=== PATIENT | female | born 1980 | race Hispanic/Latino ===

== ENCOUNTER 2016-10-10 21:52 | Inpatient (IN) | payer MEDICAID, OTHER ==
[2016-10-10 22:41] LABS: BASO # 0.1 K/uL (0.0-0.2); BASO % 0.8 % (0.0-2.0); EOS # 0.3 K/uL (0.0-0.7); EOS % 3.8 % (0.0-4.0); HEMOGLOBIN 12.9 g/dL (11.0-16.0); LYMPH # 2.7 K/uL (1.0-4.3); LYMPH % 39.6 % (20.0-40.0); MEAN CELL VOLUME 85.6 fL (81.0-99.0); MEAN CORPUSCULAR HEMOGLOBIN 28.7 pg (27.0-31.0); MEAN CORPUSCULAR HGB CONC 33.5 g/dL (33.0-37.0); MONO # 0.5 K/uL (0.0-0.8); MONO % 6.8 % (0.0-10.0); NEUT # 3.3 K/uL (1.8-7.0); RBC 4.5 Mil/uL (3.80-5.20); RED CELL DISTRIBUTION WIDTH 13.6 % (11.5-14.5); WHITE BLOOD COUNT 6.7 K/uL (4.8-10.8)
[2016-10-10 22:49] LABS: ALBUMIN 4.3 g/dL (3.5-5.0); SQUAMOUS EPITHIAL 10 /hpf (0-5); URINE BILIRUBIN NEGATIVE (NEGATIVE); URINE BLOOD NEGATIVE (NEGATIVE); URINE CLARITY Hazy (Clear); URINE COLOR Yellow (YELLOW); URINE GLUCOSE (UA) NORMAL (Normal); URINE LEUKOCYTE ESTERASE NEG Leu/uL (Negative); URINE NITRATE NEGATIVE (NEGATIVE); URINE PROTEIN NEGATIVE (NEGATIVE)
[2016-10-10 22:52] LABS: ALB/GLOB RATIO 1.2 (1.0-2.1); ALT/SGPT 34 U/L (9-52); AST/SGOT 31 U/L (14-36); BLOOD UREA NITROGEN 17 mg/dL (7-17); GFR AFRICAN-AMERICAN > 60; GFR NON-AFRICAN AMERICAN > 60
[2016-10-10 22:53] LABS: CALCIUM 8.9 mg/dl (8.6-10.4)
--- NOTE | 2016-10-10 22:53 | C.PDOC ---
History Of Present Illness 36 yo female, prescrened for detox for heiroin, xanax, last used 1 hr ago. no si /hi, other medical complaitns Time Seen by Provider: 10/10/16 22:10 Chief Complaint (Nursing): Substance Abuse Past Medical History Reviewed: Historical Data, Nursing Documentation, Vital Signs Vital Signs: Last Vital Signs Temp 98.1 F 10/10/16 22:17 Pulse 69 10/10/16 22:17 Resp 17 10/10/16 22:17 BP 118/84 10/10/16 22:17 Pulse Ox 98 10/10/16 22:53 - Medical History PMH: Anxiety Denies: Diabetes, Hepatitis, HIV, HTN, Chronic Kidney Disease, Seizures, Sexually Transmitted Disease - [facility] Procedures DETOXIFICATION SERVICES FOR SUBSTANCE ABUSE TREATMENT (05/02/16) GROUP PSYCHOTHERAPY (05/02/16) Family History: States: Unknown Family Hx - Social History Hx Alcohol Use: No Hx Substance Use: Yes - Immunization History Hx Tetanus Toxoid Vaccination: No Hx Influenza Vaccination: No Hx Pneumococcal Vaccination: No Review Of Systems Except As Marked, All Systems Reviewed And Found Negative. Physical Exam - Physical Exam Appears: Well, No Acute Distress Skin: Normal Color, Warm, Dry Eye(s): bilateral: Normal Inspection, PERRL, EOMI Nose: Normal Throat: Normal Neck: Normal Cardiovascular: Rhythm Regular Respiratory: Normal Breath Sounds Gastrointestinal/Abdominal: Normal Exam Back: Normal Inspection Extremity: Normal ROM ED Course And Treatment - Laboratory Results Result Diagrams: 10/10/16 22:37 10/10/16 22:37 O2 Sat by Pulse Oximetry: 98 Medical Decision Making Medical Decision Making: pt medically cleared. accepted Disposition - Disposition Referrals: Non [facility] Provider, [Primary Care Provider] - Disposition: HOSPITALIZED Disposition Time: 23:36 Condition: STABLE - Clinical Impression Clinical Impression: Opiate dependence Decision To Admit - Pt Status Changed To: Hospital Disposition Of: Inpatient - Admit Certification Admit to Inpatient:: After my assessment, the patient will require hospitalization for at least two midnights. This is because of the severity of symptoms shown, intensity of services needed, and/or the medical risk in this patient being treated as an outpatient. - InPatient: Physician Admission Certification: I certify that this patient requires 2 or more midnights of care for the following reason:: pt needs detox - . Bed Request Type: Detox Admitting Physician: Baltazar Hall Patient Diagnosis: Opiate dependence
[2016-10-10 23:07] LABS: OPIATES, UR POSITIVE (NEGATIVE); PHENCYCLIDINE, UR NEGATIVE (NEGATIVE)
[2016-10-10 23:10] LABS: BARBITURATES, UR NEGATIVE (NEGATIVE)
[2016-10-10 23:15] LABS: BENZODIAZEPINES, UR POSITIVE (NEGATIVE)
[2016-10-11] MEDS ORDERED: Aluminum Hydroxide/Magnesium Hydroxide Susp (30 mL) PO PRN (00:21)
--- NOTE | 2016-10-11 02:11 | PCM.BM ---
<Drake Mathis - Last Filed: 10/11/16 02:08> Treatment Plan Problems - Problems identified on initial assessmt Opiates abuse Date Initiated: 10/11/16 Time Initiated: 00:30 Assessment reference: NA Status: Active ("I use 9-10 bags of heroin IV a day, and smoke 15 - 20 bags of crack a day. Last time I used was yesterday 10/10/16 at 5PM".) Treatment assets and liabiliti Patient Assests: ADL independent, physically healthy, negotiates basic needs, strong james Patient Liabilities: substance abuse (Crack cocaine, Heroin IV. ) - Milieu Protocol Maintain good personal hygiene: daily Encourage regular showers, daily Remind patient to perform daily oral care Maintain personal safety: every shift Educate patient to report safety concerns to staff, every shift Monitor environment for contraband/sharps Medication safety: Monitor for expected outcome, potential side effects: every shift, Assess barriers to learning: every shift, Assess readiness for medication education: every shift <Jailene Calvert - Last Filed: 10/11/16 15:11> Family Contact Family involvement: Family/SO is involved Family contact: Patient agrees to contact Family contact name: Ray/boyfriend Family contacted how many times per week?: 4 - Goals for Treatment Patient goals for treatment: Transition to IOP and Suboxone maintenance as requested. Discharge/Continuing Care - Education Needs Education Needs: Patient Medication, Patient Diagnosis/Disease Process, Patient Coping Skills, Patient Anger Management skills, Patient Community resources - Discharge Discharge Criteria: No longer exhibiting s/s of withdrawal Discharge to:: Home - Treatment Team Participation Patient/Family/SO Statement: 10/11/16 15:12 "I wanna go to Suboxone doctor and IOP near my house." <Sherie Rizo - Last Filed: 10/11/16 15:17> - Diagnosis (1) Opiate dependence Status: Acute Interventions: 10/11/16 15:17 * Assess 7x/week regarding severity of withdrawal * Educate regarding risks, benefits, side effects and alternatives of medications * Use Motivational Interviewing for abstinence * Use CBT for relapse prevention * Medication management for withdrawal symptoms * Encourage medication assisted treatment * (2) Drug dependence Status: Acute Interventions: 10/11/16 15:17 * Assess 7x/week regarding severity of withdrawal * Educate regarding risks, benefits, side effects and alternatives of medications * Use Motivational Interviewing for abstinence * Use CBT for relapse prevention * Medication management for withdrawal symptoms * Encourage medication assisted treatment *
[2016-10-11] MEDS ORDERED: Buprenorphine Hydrochloride 2 mg SL ONE ×2 (13:45→14:38)
[2016-10-11] MEDS ORDERED: Buprenorphine Hydrochloride 2 mg SL SCH (14:52)
--- NOTE | 2016-10-11 15:24 | PCM.PSYCH ---
Initial Psychiatric Evaluation - Initial Psychiatric Evaluation Type of Admission: Voluntary Legal Status: Capacity Chief Complaint (in patient's own words): "I relapsed" History of Present Illness and Precipitating Events: The patient is seen, chart reviewed and case discussed. She is known to the investment underwriter from previous admissions. This is a 36-year-old female, single with 3 children who are with her mother, however she did not disclose this initially. She is unemployed and lives with her boyfriend in [place]. She is using heroin up to 10 bags IV for the last 4 years on and off. She used painkillers one year prior to that. She also uses cocaine by smoking for the last 2 years. She uses Xanax 6 mg a week, again, on and off. She denies alcohol but smokes 1 pack per day cigarettes. She denies all other drugs. Her last use was 5 PM yesterday. She has been to detox 7 times and rehabilitation twice. She reports some anxiety but denies feeling depressed. She wouldn't talk about her trauma history. Past psych history: Anxiety Family psych history: Both sides have substance use. Medical history: Denies Current Medications: Active Medications Generic Name Dose Route Start Last Admin Trade Name Freq PRN Reason Stop Dose Admin Acetaminophen 650 mg 10/11/16 00:21 Tylenol 325mg Tab PO Q4H PRN Fever greater than 101 F Al Hydrox/Mg Hydrox/Simethicone 30 ml 10/11/16 00:21 Maalox 30 Ml PO TID PRN Indigestion / Heartburn Buspirone HCl 10 mg 10/11/16 10:00 10/11/16 09:54 Buspar PO Not Given BID SHIRA Clonidine HCl 0.1 mg 10/11/16 00:21 Catapres PO Q8 PRN COWS Score More or Equal to 5 Gabapentin 600 mg 10/11/16 10:00 10/11/16 14:11 Neurontin PO Not Given TID SHIRA Hydroxyzine HCl 25 mg 10/11/16 00:24 10/11/16 01:12 Atarax PO 25 mg Q6 PRN Administration Anxiety Loperamide HCl 2 mg 10/11/16 00:21 Imodium PO Q8 PRN Diarrhea Lorazepam 1 mg 10/11/16 00:23 Ativan PO Q6 PRN Agitation Nicotine 1 patch 10/11/16 10:00 10/11/16 09:56 Nicoderm Cq TD 1 patch DAILY SHIRA Administration Ondansetron HCl 4 mg 10/11/16 00:21 Zofran Tab PO Q8 PRN Nausea/Vomiting Trazodone HCl 100 mg 10/11/16 08:44 Desyrel PO HS [facility] Past Psychiatric History - Past Psychiatric History Previous Treatment History: None Pertinent Medical Hx (Current Medical&Sleep Prob, Allergies): Allergies Allergy/AdvReac Type Severity Reaction Status Date / Time artificial sweetners Allergy Uncoded 10/10/16 22:17 busPIRone [Buspar] 15 mg PO BID #60 tab 05/05/16 Gabapentin 600 mg PO BID 10/10/16 traZODone [Desyrel] 200 mg PO HS 10/10/16 Review of Systems - Psychiatric Psychiatric: Abnormal Sleep Pattern, Anxiety, Irritability. absent: Hallucinations, Homicidal Ideation, Suicidal Ideation Mental Status Examination - Personal Presentation Personal Presentation: Looks stated age - Affect Affect: Constricted - Motor Activity Motor Activity: Calm - Reliability in Providing Information Reliability in Providing Information: Fair - Speech Speech: Organized - Mood Mood: Anxious - Formal Thought Process Formal Thought Process: No Impairment - Cognitive Functions Orientation: Person, Place, Situation, Time Sensorium: Alert Attention/Concentration: Attentive Estimate of Intelligence: Average Judgement: Intact, as evidence by: Insight regarding need for hospitalization Memory: Recent intact, as evidence by: Ability to recall events of the day, Remote intact, as evidenced by: Abilit to recall sig. life events - Risk Risk: Withdrawal, Diminished functioning - Strength & Assets Inventory Strength & Assets Inventory: Cooperative - Limitations Limitations: Other DSM 5 DX - DSM 5 DSM 5 Diagnosis: opioid withdrawal Opioid use disorder, severe Cocaine use disorder, severe Sedative, hypnotic and anxiolytic use disorder, moderate anxiety disorder, unspecified - Recommended/Plan of Treatment Treatment Recommendations and Plan of Treatment: Subutex detox from opioids Gabapentin for augmentation and anxiety and cocaine wdw As needed meds and vitamins Attend groups and activities [place] for abstinence and CBT for relapse prevention Support and psychoeducation Consider and encourage MAT Refer to after care Buspar for anxiety 33 min Projected ELOS: 4-5 days Prognosis: good w treatment Discharge Plan and Discharge Criteria: No wdw sxs refer to IOP and/or MAT - Smoking Cessation Smoking Cessation Initiated: Yes
[2016-10-12] MEDS: Buprenorphine Hydrochloride 2 mg SL SCH (09:48)
[2016-10-12] MEDS ORDERED: Buprenorphine Hydrochloride 2 mg SL ONE (14:00)
--- NOTE | 2016-10-12 16:08 | PCM.PYCHPN ---
Psychiatric Progress Note - Psychiatric Progress Note Patient seen today, length of contact: 15 min Patient Chief Complaint: "I am very very anxious and withdrawing" Problems Identified/Issues Discussed: Patient is seen, evaluated, and case discussed with staff. Patient states that she does not feel well today. She reports of chills, shaking , sweating, and constipation. Patient denies any side effects from medications. Symptoms are improving slowly and needs more time to stabilize. An extra 2 mg sbx given and will be given more if needed. Atarax is increased Support and psychoeducation given. Medication Change: Yes (detox changes daily) Medical Record Reviewed: Yes Mental Status Examination - Cognitive Function Orientation: Person, Place, Situation, Time Memory: Intact Attention: WNL Concentration: Poor Association: Loose Fund of Knowledge: Poor - Mood Mood: Anxious - Affect Affect: Constricted - Speech Speech: Appropriate - Formal Thought Process Formal Thought Process: No Impairment - Suicidal Ideation Suicidal Ideation: No - Homicidal Ideation Homicidal Ideation: No Goal/Treatment Plan - Goal/Treatment Plan Need for Continued Stay: Discharge may exacerbated symptoms, Severe functional impairment Progress Toward Problem(s) and Goals/Treatment Plan: Subutex detox from opioids Gabapentin for augmentation and anxiety and cocaine wdw As needed meds and vitamins Attend groups and activities [place] for abstinence and CBT for relapse prevention Support and psychoeducation Consider and encourage MAT Refer to after care Epifanio for anxiety Estimated Date of D/C: 10/15/16
[2016-10-13] MEDS: Buprenorphine Hydrochloride 2 mg SL SCH (09:19)
--- NOTE | 2016-10-13 12:28 | PCM.PYCHPN ---
Psychiatric Progress Note - Psychiatric Progress Note Patient seen today, length of contact: 16 min Patient Chief Complaint: "I am better today" Problems Identified/Issues Discussed: The pt is seen, chart reviewed, case discussed with staff. Support given, CBT and CO used briefly No new symptoms reported, improving slowly and needs more time No SEs from medications, risks discussed. After care discussed - she wants to move to [place] and go to a SBX dr there She got an extra sbx yesterday and may need another one today Medication Change: Yes (detox changes daily) Medical Record Reviewed: Yes Mental Status Examination - Cognitive Function Orientation: Person, Place, Situation, Time Memory: Intact Attention: WNL Concentration: WNL Association: WNL Fund of Knowledge: WNL - Mood Mood: Anxious - Affect Affect: Constricted - Speech Speech: Appropriate - Formal Thought Process Formal Thought Process: No Impairment - Suicidal Ideation Suicidal Ideation: No - Homicidal Ideation Homicidal Ideation: No Goal/Treatment Plan - Goal/Treatment Plan Need for Continued Stay: Discharge may exacerbated symptoms, Severe functional impairment Progress Toward Problem(s) and Goals/Treatment Plan: Subutex detox from opioids Gabapentin for augmentation and anxiety and cocaine wdw As needed meds and vitamins Attend groups and activities [place] for abstinence and CBT for relapse prevention Support and psychoeducation Consider and encourage MAT Refer to after care Epifanio for anxiety Estimated Date of D/C: 10/15/16
[2016-10-14] MEDS: Buprenorphine Hydrochloride 2 mg SL SCH (09:49)
[2016-10-14 14:00] VITALS: RESP 18
--- NOTE | 2016-10-14 14:52 | PCM.PYCHPN ---
Psychiatric Progress Note - Psychiatric Progress Note Patient seen today, length of contact: 15 minutes Patient Chief Complaint: I'm feeling much better. Can I go home today. Problems Identified/Issues Discussed: Patient seen. Chart reviewed. Case discussed with the patient. Issues related to illness and treatment were discussed with the patient. Reported compliant with treatment with no adverse affects. Tolerating treatment very well. Reported no withdrawal symptoms. At the time of evaluation, patient was awake alert oriented 3, had no delusions, no auditory or visual hallucinations, no suicidal ideations or homicidal ideations. Medical Problems: None reported Diagnostic Results: Reviewed DSM 5 Symptoms Update: Improving with treatment Medication Change: No (detox changes daily) Medical Record Reviewed: Yes Mental Status Examination - Cognitive Function Orientation: Person, Place, Situation, Time Memory: Intact Attention: WNL Concentration: WNL Association: WN Fund of Knowledge: [facility] Decription of patient's judgement and insights: Fair - Mood Mood: Neutral - Affect Affect: Other (Appropriate) - Speech Speech: Appropriate - Formal Thought Process Formal Thought Process: No Impairment Psychotic Thoughts and Behaviors: None - Suicidal Ideation Suicidal Ideation: No - Homicidal Ideation Homicidal Ideation: No Goal/Treatment Plan - Goal/Treatment Plan Need for Continued Stay: Remain at risks for inpatient hospitalization, Discharge may exacerbated symptoms, Severe functional impairment Progress Toward Problem(s) and Goals/Treatment Plan: Patient education Supportive therapy Continue treatment as before Wants to go to a Suboxone clinic in [place] for follow-up care after discharge from the hospital Estimated Date of D/C: 10/15/16 - Smoking Cessation Smoking Cessation Initiated: Yes
[2016-10-15 06:08] VITALS: BP 97/61; PULSE 63; TEMP 97; O2SAT 99
--- NOTE | 2016-10-15 09:08 | PCM.PYCHDC ---
Mental Status Examination - Mental Status Examination Orientation: Person, Place, Situation, Time Discharge Summary - Discharge Note Consultations:: List each consultation separately and include: 1. Reason for request. 2. Findings. 3. Follow-up Summary of Hospital Course include:: 1. Description of specific treatment plan utilized for patients during their course of treatmen. 2. Summarize the time- course for resolution of acute symptoms and/or regressed behaviors. 3. Describe issues identified and worked on during hospitalization. 4. Describe medication utilized. 5. Describe medical problems identified and treated. 6. Reassessment of suicide risk Summary of Hospital Course: The patient is seen, chart reviewed and case discussed. She is known to the communications writer from previous admissions. This is a 36-year-old female, single with 3 children who are with her mother, however she did not disclose this initially. She is unemployed and lives with her boyfriend in [place]. She is using heroin up to 10 bags IV for the last 4 years on and off. She used painkillers one year prior to that. She also uses cocaine by smoking for the last 2 years. She uses Xanax 6 mg a week, again, on and off. She denies alcohol but smokes 1 pack per day cigarettes. She denies all other drugs. Her last use was 5 PM yesterday. She has been to detox 7 times and rehabilitation twice. She reports some anxiety but denies feeling depressed. She wouldn't talk about her trauma history. Past psych history: Anxiety Family psych history: Both sides have substance use. Medical history: Denies - Diagnosis (1) Opiate dependence Current Visit: Yes Status: Acute (2) Drug dependence Current Visit: No Status: Acute - Final Diagnosis (DSM 5) Condition upon Discharge: STABLE Disposition: HOME/ ROUTINE Follow-up Treatment Plan: Subutex detox from opioids Gabapentin for augmentation and anxiety and cocaine wdw As needed meds and vitamins Attend groups and activities [place] for abstinence and CBT for relapse prevention Support and psychoeducation Consider and encourage MAT Refer to after care Buspar for anxiety Prescriptions/Medication Reconciliation: busPIRone [Buspar] 15 mg PO BID #60 tab Gabapentin [Neurontin] 600 mg PO TID #90 tab traZODone [Desyrel] 100 mg PO HS PRN #30 tab PRN Reason: Insomnia
[2016-10-15] MEDS: Buprenorphine Hydrochloride 2 mg SL SCH (09:18)
== END 2016-10-15 09:25 | disposition home or self-care (01) | DRG 745 ==
LOC: SUPCPDRO 21:52 → C.ER 21:52 → C.7D 23:34
PROVIDERS: ADMIT Psychiatry & Neurology Psychiatry; ATTEND Psychiatry & Neurology Psychiatry
PROC: HZ2ZZZZ Detoxification Services for Substance Abuse Treatment (ICD-10-PCS; principal; 2016-10-10)
PROC: HZ59ZZZ Individual Psychotherapy for Substance Abuse Treatment, Supportive (ICD-10-PCS; 2016-10-10)
PROC: HZ46ZZZ Group Counseling for Substance Abuse Treatment, Psychoeducation (ICD-10-PCS; 2016-10-10)
DX: F11.23 Opioid dependence with withdrawal (principal); F14.20 Cocaine dependence, uncomplicated; F13.10 Sedative, hypnotic or anxiolytic abuse, uncomplicated; F41.9 Anxiety disorder, unspecified; F17.210 Nicotine dependence, cigarettes, uncomplicated

== ENCOUNTER 2017-05-04 21:38 | Emergency (ER) | payer MEDICAID, OTHER ==
[2017-05-05 00:38] VITALS: RESP 18
== END 2017-05-04 23:30 | disposition left against medical advice (07) ==
LOC: C.ER 21:38
DX: Z02.89 Encounter for other administrative examinations (principal); Z00.00 Encounter for general adult medical examination without abnormal findings

== ENCOUNTER 2017-05-05 00:48 | Emergency (ER) | payer MEDICAID, OTHER ==
[2017-05-05 00:58] VITALS: RESP 18; O2SAT 100
--- NOTE | 2017-05-05 01:42 | C.PDOC ---
History Of Present Illness Patient is a 36 y/o female who presents to the ED prescreened for heroin detox. Patient admits last use was today. No other physical complaints at this time. Time Seen by Provider: 05/05/17 01:41 Chief Complaint (Nursing): Substance Abuse History Per: Patient History/Exam Limitations: no limitations Onset/Duration Of Symptoms: Hrs Current Symptoms Are (Timing): Still Present Suicide/Self Injury Attempted (Context): None Modifying Factor(s): Narcotics (heroin) Severity: None Associated Symptoms: denies: Depression, Suicidal Thoughts Recent travel outside of the [place]: No Additional History Per: Patient Past Medical History Reviewed: Historical Data, Nursing Documentation, Vital Signs Vital Signs: Last Vital Signs Temp 97.9 F 05/05/17 00:53 Pulse 64 05/05/17 00:53 Resp 18 05/05/17 00:53 BP 122/83 05/05/17 00:53 Pulse Ox 100 05/05/17 01:52 - Medical History PMH: Anxiety Denies: Diabetes, Hepatitis, HIV, HTN, Chronic Kidney Disease, Seizures, Sexually Transmitted Disease Surgical History: No Surg Hx - [facility] Procedures DETOXIFICATION SERVICES FOR SUBSTANCE ABUSE TREATMENT (10/10/16) GROUP SENIOR SOFTWARE ENGINEER ANALYTICS FOR SUBSTANCE ABUSE TREATMENT, PSYCHOEDUCATION (10/10/16) GROUP PSYCHOTHERAPY (05/02/16) INDIV PSYCHOTHERAPY FOR SUBSTANCE ABUSE TREATMENT, SUPPORT (10/10/16) Family History: States: No Known Family Hx - Social History Hx Tobacco Use: Yes (heavy smoker) Hx Alcohol Use: No Hx Substance Use: Yes - Immunization History Hx Tetanus Toxoid Vaccination: No Hx Influenza Vaccination: No Hx Pneumococcal Vaccination: No Review Of Systems Constitutional: Negative for: Fever, Chills Eyes: Negative for: Redness ENT: Negative for: Throat Pain Cardiovascular: Negative for: Chest Pain Respiratory: Negative for: Shortness of Breath Gastrointestinal: Negative for: Abdominal Pain Genitourinary: Negative for: Dysuria Musculoskeletal: Negative for: Back Pain Skin: Negative for: Rash Neurological: Negative for: Weakness Psych: Positive for: Other (heroin detox) Physical Exam - Physical Exam Appears: Non-toxic, No Acute Distress Skin: Warm, Dry Head: Normacephalic Oral Mucosa: Moist Neck: Supple Chest: Symmetrical Cardiovascular: Rhythm Regular, No Murmur Respiratory: Normal Breath Sounds, No Rales, No Rhonchi, No Wheezing Gastrointestinal/Abdominal: Soft, No Tenderness Back: Normal Inspection Extremity: Normal ROM Extremity: Bilateral: Atraumatic Neurological/Psych: Oriented x3, Normal Speech, Normal Cognition Gait: Steady ED Course And Treatment - Laboratory Results Result Diagrams: 05/05/17 01:56 05/05/17 02:03 O2 Sat by Pulse Oximetry: 100 Pulse Ox Interpretation: Normal Progress Note: Crisis notified. HCG urine, UA, blood work, and drug screen ordered. pt states that she no longer wants detox after finding out that she is . Wants to follow up with her own doctor.Pt is [id number] Disposition Counseled Patient/Family Regarding: Studies Performed, Diagnosis, Need For Followup - Disposition Disposition: HOME/ ROUTINE Disposition Time: 01:41 Condition: FAIR Additional Instructions: Please follow up with your own physician Instructions: Polysubstance Abuse (ED), (ED) Forms: [facility] (Kyrgyz) - Clinical Impression Clinical Impression: Drug dependence, - Scribe Statement The provider has reviewed the documentation as recorded by the Scriblj Wesley All medical record entries made by the Scribe were at my direction and personally dictated by me. I have reviewed the chart and agree that the record accurately reflects my personal performance of the history, physical exam, medical decision making, and the department course for this patient. I have also personally directed, reviewed, and agree with the discharge instructions and disposition.
[2017-05-05 02:01] LABS: BASO % 0.3 % (0.0-2.0); EOS # 0.1 K/uL (0.0-0.7); EOS % 1.9 % (0.0-4.0); HEMOGLOBIN 12.4 g/dL (11.0-16.0); LYMPH # 1.3 K/uL (1.0-4.3); LYMPH % 17.8 % (20.0-40.0); MEAN CELL VOLUME 88.2 fL (81.0-99.0); MEAN CORPUSCULAR HEMOGLOBIN 30.6 pg (27.0-31.0); MEAN CORPUSCULAR HGB CONC 34.7 g/dL (33.0-37.0); MEAN PLATELET VOLUME 9.4 fL (7.2-11.7); MONO # 0.4 K/uL (0.0-0.8); MONO % 5.7 % (0.0-10.0); NEUT # 5.3 K/uL (1.8-7.0); NEUT % 74.3 % (50.0-75.0); RBC 4.05 Mil/uL (3.80-5.20); RED CELL DISTRIBUTION WIDTH 13.2 % (11.5-14.5); WHITE BLOOD COUNT 7.2 K/uL (4.8-10.8)
[2017-05-05 02:18] LABS: ALB/GLOB RATIO 1.2 (1.0-2.1); ALT/SGPT 149 U/L (9-52); AST/SGOT 104 U/L (14-36); BLOOD UREA NITROGEN 11 mg/dL (7-17); CALCIUM 9.2 mg/dl (8.6-10.4); GFR AFRICAN-AMERICAN > 60; GFR NON-AFRICAN AMERICAN > 60
[2017-05-05 02:24] LABS: BARBITURATES, UR NEGATIVE (NEGATIVE); BENZODIAZEPINES, UR NEGATIVE (NEGATIVE); PHENCYCLIDINE, UR NEGATIVE (NEGATIVE)
[2017-05-05 02:25] LABS: OPIATES, UR POSITIVE (NEGATIVE)
[2017-05-05 02:52] VITALS: BP 112/67; PULSE 81; TEMP 98.6
[2017-05-05 03:37] LABS: SQUAMOUS EPITHIAL 34 /hpf (0-5); URINE BACTERIA MANY (<OCC); URINE BILIRUBIN NEGATIVE (NEGATIVE); URINE BLOOD NEGATIVE (NEGATIVE); URINE CLARITY Hazy (Clear); URINE COLOR Amber (YELLOW); URINE GLUCOSE (UA) NORMAL (Normal); URINE LEUKOCYTE ESTERASE TRACE Leu/uL (Negative); URINE NITRATE NEGATIVE (NEGATIVE); URINE PROTEIN 1+ mg/dL (NEGATIVE)
== END 2017-05-05 02:57 | disposition home or self-care (01) ==
LOC: C.ER 00:48
DX: F11.20 Opioid dependence, uncomplicated (principal); O26.899 Other specified pregnancy related conditions, unspecified trimester; Z3A.00 Weeks of gestation of pregnancy not specified

== ENCOUNTER 2017-12-23 21:41 | Inpatient (IN) | payer OTHER ==
[2017-12-23 22:41] LABS: SQUAMOUS EPITHIAL 5 /hpf (0-5); URINE BILIRUBIN NEGATIVE (NEGATIVE); URINE BLOOD NEGATIVE (NEGATIVE); URINE CLARITY Clear (Clear); URINE COLOR Yellow (YELLOW); URINE GLUCOSE (UA) NORMAL (Normal); URINE LEUKOCYTE ESTERASE NEG Leu/uL (Negative); URINE PROTEIN NEGATIVE (NEGATIVE); URINE UROBILINOGEN NORMAL mg/dL (0.2-1.0)
[2017-12-23 22:42] LABS: BASO % 0.5 % (0.0-2.0); EOS % 0.1 % (0.0-4.0); HEMOGLOBIN 12.7 g/dL (11.0-16.0); MEAN CELL VOLUME 88.1 fL (81.0-99.0); MEAN CORPUSCULAR HEMOGLOBIN 30.3 pg (27.0-31.0); MEAN CORPUSCULAR HGB CONC 34.4 g/dL (33.0-37.0); MEAN PLATELET VOLUME 8.9 fL (7.2-11.7); MONO # 0.4 K/uL (0.0-0.8); MONO % 6.6 % (0.0-10.0); NEUT # 3.2 K/uL (1.8-7.0); NEUT % 47.8 % (50.0-75.0); NRBC % 0.1 % (0.0-2.0); RBC 4.18 Mil/uL (3.80-5.20); RED CELL DISTRIBUTION WIDTH 14.1 % (11.5-14.5); WHITE BLOOD COUNT 6.6 K/uL (4.8-10.8)
[2017-12-23 22:54] LABS: ALB/GLOB RATIO 1.4 (1.0-2.1); ALBUMIN 4.6 g/dL (3.5-5.0); ALT/SGPT 27 U/L (9-52); AST/SGOT 23 U/L (14-36); BARBITURATES, UR NEGATIVE (NEGATIVE); BENZODIAZEPINES, UR NEGATIVE (NEGATIVE); BLOOD UREA NITROGEN 15 mg/dL (7-17); CALCIUM 9.8 mg/dl (8.6-10.4); GFR NON-AFRICAN AMERICAN 57
[2017-12-23 22:58] LABS: PHENCYCLIDINE, UR NEGATIVE (NEGATIVE)
--- NOTE | 2017-12-23 22:59 | C.PDOC ---
History Of Present Illness 37 year old female presents to the ED requesting heroin detox. Patient was a prescreen for detox admission. Patient reports she uses 15 bag a day, IM in her thighs. Patient denies SI/HI, hallucinations, other complaints. Time Seen by Provider: 12/23/17 22:08 Chief Complaint (Nursing): Substance Abuse History Per: Patient History/Exam Limitations: no limitations Onset/Duration Of Symptoms: Hrs Current Symptoms Are (Timing): Still Present Suicide/Self Injury Attempted (Context): None Modifying Factor(s): Other (Heroin) Associated Symptoms: denies: Depression, Suicidal Thoughts, Suicidal Plan Recent travel outside of the [place]: No Additional History Per: Patient Past Medical History Reviewed: Historical Data, Nursing Documentation, Vital Signs Vital Signs: Last Vital Signs Temp 97.9 F 12/23/17 21:55 Pulse 71 12/23/17 21:55 Resp 20 12/23/17 21:55 BP 110/72 12/23/17 21:55 Pulse Ox 97 12/23/17 21:55 - Medical History PMH: Anxiety Denies: Diabetes, Hepatitis, HIV, HTN, Chronic Kidney Disease, Seizures, Sexually Transmitted Disease Surgical History: No Surg Hx - [facility] Procedures DETOXIFICATION SERVICES FOR SUBSTANCE ABUSE TREATMENT (10/10/16) GROUP LIFT SUPERVISOR FOR SUBSTANCE ABUSE TREATMENT, PSYCHOEDUCATION (10/10/16) GROUP PSYCHOTHERAPY (05/02/16) INDIV PSYCHOTHERAPY FOR SUBSTANCE ABUSE TREATMENT, SUPPORT (10/10/16) Family History: States: Unknown Family Hx - Social History Hx Tobacco Use: Yes (heavy smoker) Hx Alcohol Use: No Hx Substance Use: Yes (Heroin) - Immunization History Hx Tetanus Toxoid Vaccination: No Hx Influenza Vaccination: No Hx Pneumococcal Vaccination: No Review Of Systems Constitutional: Negative for: Fever, Chills Cardiovascular: Negative for: Chest Pain Respiratory: Negative for: Shortness of Breath Gastrointestinal: Negative for: Nausea, Vomiting, Abdominal Pain Neurological: Negative for: Weakness, Numbness Psych: Negative for: Depression, Suicidal ideation Physical Exam - Physical Exam Appears: Non-toxic, No Acute Distress Skin: Normal Color, Warm, Dry Head: Atraumatic, Normacephalic Eye(s): bilateral: Normal Inspection, Other (pin point pupils) Neck: Normal ROM, Supple Chest: Symmetrical Cardiovascular: Rhythm Regular Respiratory: Normal Breath Sounds, No Rales, No Rhonchi, No Wheezing Gastrointestinal/Abdominal: Soft, No Tenderness, No Guarding, No Rebound Extremity: Normal ROM, No Tenderness, No Swelling Neurological/Psych: Oriented x3, Normal Speech Gait: Steady ED Course And Treatment - Laboratory Results Result Diagrams: 12/23/17 22:35 12/23/17 22:35 O2 Sat by Pulse Oximetry: 97 (ON RA) Pulse Ox Interpretation: Normal - Physician Consult Information Outcome Of Conversation: 2300. d/w Crisis, ok to Detox Medical Decision Making Medical Decision Making: Plan: * Labs * UA Disposition Doctor Will See Patient In The: Hospital Counseled Patient/Family Regarding: Studies Performed, Diagnosis - Disposition Disposition: HOSPITALIZED Disposition Time: 22:58 Condition: GOOD - Clinical Impression Clinical Impression: Opiate abuse, continuous, Anxiety disorder - Scribe Statement The provider has reviewed the documentation as recorded by the Scribe Kirit Jensen All medical record entries made by the Scribe were at my direction and personally dictated by me. I have reviewed the chart and agree that the record accurately reflects my personal performance of the history, physical exam, medical decision making, and the department course for this patient. I have also personally directed, reviewed, and agree with the discharge instructions and disposition.
[2017-12-23 23:22] LABS: OPIATES, UR POSITIVE (NEGATIVE)
--- NOTE | 2017-12-23 23:31 | PCM.BM ---
<Lance Wheat - Last Filed: 12/23/17 23:29> Treatment Plan Problems - Problems identified on initial assessmt Problem 1 Date Initiated: 12/23/17 Time Initiated: 23:30 Assessment reference: NA Status: Active Comment: heroin abuse Treatment assets and liabiliti Patient Assests: cooperative, ADL independent, physically healthy, negotiates basic needs, strong james Patient Liabilities: poor support system, substance abuse - Milieu Protocol Maintain good personal hygiene: daily Encourage regular showers, daily Remind patient to perform daily oral care, daily Assist patient to perform ADL's Conduct patient checks and document Observation sheet: Q15 minutes Maintain personal safety: every shift Educate patient to report safety concerns to staff, every shift Monitor environment for contraband/sharps Medication safety: Monitor for expected outcome, potential side effects: every shift, Assess barriers to learning: every shift, Assess readiness for medication education: every shift <Sherie Rizo - Last Filed: 12/24/17 23:30> - Diagnosis (1) Opiate dependence Status: Acute Interventions: 12/24/17 23:30 * Assess 7x/week regarding severity of withdrawal * Educate regarding risks, benefits, side effects and alternatives of medications * Use Motivational Interviewing for abstinence * Use CBT for relapse prevention * Medication management for withdrawal symptoms * Encourage medication assisted treatment *
[2017-12-24] MEDS ORDERED: Aluminum Hydroxide/Magnesium Hydroxide Susp (30 mL) PO PRN (13:10)
--- NOTE | 2017-12-24 14:27 | PCM.PSYCH ---
Addendum entered and electronically signed by Sherie Rizo MD 12/24/17 23:30: I attest that I have interviewed the pt and reviewed the chart and participated and agree with the following assessment and plan. Correction: Total duration was 32 minutes Original Note: Initial Psychiatric Evaluation - Initial Psychiatric Evaluation Type of Admission: Voluntary Legal Status: Capacity Chief Complaint (in patient's own words): "I relapsed." History of Present Illness and Precipitating Events: Patient seen, chart reviewed, case discussed with staff. Ms. Osorio is a single jobless, homeless 37 year old female with 4 children (now under mom's custody) with PMH anxiety comes to [facility] detox for the 4th time (last 09/2016) for heroin use. She is using heroin up to 15 bags IV for the last 5 years on and off. She used painkillers two year prior to that. She also uses cocaine by smoking for the last 3 years. She uses Xanax 6 mg a week, again, on and off. She denies alcohol but smokes 1 pack per day cigarettes. She denies all other drugs. Her last use was immediately prior to admission. She has been to detox 7 times and rehabilitation twice. After previous inpatient, she states she was sober for 8 months, however, she has [facility] visits with [facility] + for heroin and cocaine during this time. Psych: Anxiety Family psych history: Both sides have substance use. PMH: denies Legal: mother already has custody of 3 previous children. Youngest is 2.5 months and DYFS removed her from his care prior to admission ED: BAL <10, UDS + for opiates, cocaine Note: Patient has set up for 6 month inpatient rehab and the [facility] in [place], [place] in order to stay with her newest born. This location was "suggested' by the typesetters printer handling her custody case. Current Medications: Active Medications Generic Name Dose Route Start Last Admin Trade Name Freq PRN Reason Stop Dose Admin Al Hydrox/Mg Hydrox/Simethicone 30 ml 12/24/17 13:10 Maalox 30 Ml PO TID PRN Indigestion / Heartburn Clonidine HCl 0.1 mg 12/24/17 13:10 Catapres PO Q8 PRN COWS Score More or Equal to 5 Gabapentin 300 mg 12/24/17 14:00 12/24/17 13:22 Neurontin PO 300 mg TID SHIRA Administration Hydroxyzine HCl 50 mg 12/24/17 13:13 Atarax PO Q6H PRN Anxiety Ibuprofen 600 mg 12/24/17 13:15 Motrin Tab PO Q6H PRN Pain, moderate (4-7) Loperamide HCl 2 mg 12/24/17 13:10 Imodium PO Q8 PRN Diarrhea Methadone HCl 20 mg 12/25/17 10:00 Methadone PO 12/29/17 09:59 Q24H SHIRA Taper Ondansetron HCl 4 mg 12/24/17 13:10 Zofran Tab PO Q8 PRN Nausea/Vomiting Trazodone HCl 100 mg 12/24/17 22:00 Desyrel PO HS [facility] Past Psychiatric History - Past Psychiatric History Pertinent Medical Hx (Current Medical&Sleep Prob, Allergies): Allergies Allergy/AdvReac Type Severity Reaction Status Date / Time artificial sweetners Allergy RASH Uncoded 12/23/17 22:01 traZODone [Desyrel] 100 mg PO HS 10/10/16 Gabapentin [Neurontin] 600 mg PO TID #90 tab 10/15/16 cloNIDine [clonidine HCl] 0.1 mg PO BID 12/23/17 Review of Systems - Psychiatric Psychiatric: Abnormal Sleep Pattern, Anxiety, Irritability. absent: Hallucinations, Homicidal Ideation, Suicidal Ideation Mental Status Examination - Personal Presentation Personal Presentation: Looks stated age - Affect Affect: Constricted - Motor Activity Motor Activity: Calm - Reliability in Providing Information Reliability in Providing Information: Fair - Speech Speech: Organized - Mood Mood: Anxious - Formal Thought Process Formal Thought Process: No Impairment - Cognitive Functions Orientation: Person, Place, Situation, Time Sensorium: Alert Attention/Concentration: Attentive Estimate of Intelligence: Average Judgement: Intact, as evidence by: Insight regarding need for hospitalization Memory: Recent intact, as evidence by: Ability to recall events of the day, Remote intact, as evidenced by: Abilit to recall sig. life events - Risk Risk: Withdrawal, Diminished functioning - Strength & Assets Inventory Strength & Assets Inventory: Cooperative DSM 5 DX - DSM 5 DSM 5 Diagnosis: Opioid use disorder - severe Opioid withdrawal Cocaine use disorder - severe Anxiety disorder, unspecified - Recommended/Plan of Treatment Treatment Recommendations and Plan of Treatment: Taper with Methadone Gabapentin for augmentation Trazodone for sleep As needed medication All risks, benefits, and alternatives of the meds discussed, and the patient agreed and understood. Attend groups and activities Supportive therapy and psychoeducation [place] for abstinence CBT for relapse prevention Encourage MAT Refer to rehab or IOP, and self-help groups Smoking cessation with [place], nicotine patch daily. 22 min - Smoking Cessation Smoking Cessation Initiated: Yes
--- NOTE | 2017-12-25 15:17 | PCM.PYCHPN ---
Psychiatric Progress Note - Psychiatric Progress Note Patient seen today, length of contact: 15 min Patient Chief Complaint: "I'm a little bit better" Problems Identified/Issues Discussed: The pt is seen, chart reviewed, case discussed with staff. The pt is compliant with medications and reports no side-effects. Symptoms are improving but needs more time to stabilize. She is isolated and has AMA risk - Support offered Support given, psycho-education provided. After care discussed. Medication Change: Yes (detox changes daily) Medical Record Reviewed: Yes Mental Status Examination - Cognitive Function Orientation: Person, Place, Situation, Time Memory: Intact Attention: Poor Concentration: Poor Association: WNL Fund of Knowledge: WNL - Mood Mood: Anxious - Affect Affect: Constricted - Speech Speech: Appropriate - Formal Thought Process Formal Thought Process: No Impairment - Suicidal Ideation Suicidal Ideation: No - Homicidal Ideation Homicidal Ideation: No Goal/Treatment Plan - Goal/Treatment Plan Need for Continued Stay: Discharge may exacerbated symptoms, Severe functional impairment Progress Toward Problem(s) and Goals/Treatment Plan: Continue medications Support and psychoeducation daily Attend groups and activities daily After care planning by NAE
[2017-12-25 15:58] VITALS: BP 103/68; PULSE 66; RESP 18; TEMP 98; O2SAT 99
--- NOTE | 2017-12-26 08:59 | PCM.PYCHDC ---
Mental Status Examination - Mental Status Examination Orientation: Person, Place, Situation, Time Memory: Intact Mood: Anxious Affect: Constricted Speech: Appropriate Attention: Poor Concentration: Poor Association: WNL Fund of Knowledge: WNL Formal Thought Process: No Impairment Suicidal Ideation: No Current Homicidal Ideation?: No Discharge Summary - Discharge Note Consultations:: List each consultation separately and include: 1. Reason for request. 2. Findings. 3. Follow-up Summary of Hospital Course include:: 1. Description of specific treatment plan utilized for patients during their course of treatmen. 2. Summarize the time- course for resolution of acute symptoms and/or regressed behaviors. 3. Describe issues identified and worked on during hospitalization. 4. Describe medication utilized. 5. Describe medical problems identified and treated. 6. Reassessment of suicide risk - Final Diagnosis (DSM 5) Condition upon Discharge: GOOD Disposition: AGAINST MEDICAL ADVICE Follow-up Treatment Plan: Continue medications Support and psychoeducation daily Attend groups and activities daily After care planning by NAE
== END 2017-12-25 19:30 | disposition left against medical advice (07) | DRG 743 ==
LOC: C.ER 21:41 → C.7D 22:59
PROC: HZ2ZZZZ Detoxification Services for Substance Abuse Treatment (ICD-10-PCS; principal; 2017-12-23)
PROC: HZ59ZZZ Individual Psychotherapy for Substance Abuse Treatment, Supportive (ICD-10-PCS; 2017-12-23)
PROC: HZ46ZZZ Group Counseling for Substance Abuse Treatment, Psychoeducation (ICD-10-PCS; 2017-12-23)
PROC: GZ3ZZZZ Medication Management (ICD-10-PCS; 2017-12-23)
PROC: HZ81ZZZ Medication Management for Substance Abuse Treatment, Methadone Maintenance (ICD-10-PCS; 2017-12-23)
PROC: HZ80ZZZ Medication Management for Substance Abuse Treatment, Nicotine Replacement (ICD-10-PCS; 2017-12-23)
DX: F11.23 Opioid dependence with withdrawal (principal); F14.10 Cocaine abuse, uncomplicated; F17.210 Nicotine dependence, cigarettes, uncomplicated; F41.9 Anxiety disorder, unspecified; Z59.0 Homelessness